=== PATIENT | male | born 1950 | race Caucasian/White ===

== ENCOUNTER 2018-01-17 15:56 | Inpatient (IN) | payer MEDICARE ==
[~2018-01-17] VITALS: Ht 142.2 cm; Wt 69.1 kg
[~2018-01-17 15:56] MED LIST: AMLO5TAB2 PO; ASPI-515 PO; METO50TA82 PO; OMEP40CA6 PO; OXYC15TA PO
[2018-01-17] MEDS ORDERED: SODIUM CHLORIDE 0.9% 1,000ML IVBOLUS ONE (16:30)
[2018-01-17] MEDS ORDERED: SODIUM CHLORIDE FLUSH 10ML SYR IVF ONE (16:30)
[2018-01-17 17:03] LABS: BASOPHILS % (AUTO) 0 % (0-1); EOSINOPHILS % (AUTO) 0 % (1-7); LYMPHOCYTES % (AUTO) 4 % (22-44); MD NO; MEAN CORPUSCULAR HGB CONC 33.1 g/dL (33.2-36.2); MEAN PLATELET VOLUME 9.5 fL (7.4-10.4); MONOCYTES # (AUTO) 0.43 x10^3/uL (0.2-0.8); MONOCYTES % (AUTO) 3 % (2-9); NEUTROPHILS % (AUTO) 93 % (42-75); PLATELET COUNT 198 x10^3/uL (130-400); RED BLOOD COUNT 3.25 x10^6/uL (4.38-5.82); RED CELL DISTRIBUTION WIDTH 14.2 % (9.4-14.8)
[2018-01-17 17:10] LABS: INTERNATIONAL NORMALIZED RATIO 1.28 (0.93-1.1); PROTHROMBIN TIME 13.2 Seconds (9.6-11.5)
[2018-01-17 17:12] LABS: ACETONE, SERUM Small (20mg/dL) mg/dL (Negative)
[2018-01-17 17:13] LABS: O2 FLOW ROOM AIR L/min
[2018-01-17 17:14] LABS: ALANINE AMINOTRANSFERASE 29 U/L (12-78); ALBUMIN 1.4 g/dL (3.4-5.0); ANION GAP 12 mmol/L (5-15); CALCIUM 7.1 mg/dL (8.5-10.1); CHLORIDE 113 mmol/L (98-107); CREATININE 1.89 mg/dL (0.7-1.3)
[2018-01-17 17:41] LABS: ALKALINE PHOSPHATASE 248 U/L (45-117); BILIRUBIN,TOTAL 0.5 mg/dL (0.2-1.0); TOTAL PROTEIN 4.9 g/dL (6.4-8.2)
[2018-01-17] MEDS ORDERED: GABA100C PO (17:43)
[2018-01-17] MEDS ORDERED: CALC-680 PO (17:43)
[2018-01-17] MEDS ORDERED: LIPA1CAP4 PO (17:43)
[2018-01-17] MEDS ORDERED: CALC200T3 PO (17:43)
[2018-01-17] MEDS ORDERED: BUDE10.2 INH (17:43)
[2018-01-17] MEDS ORDERED: LACT1TAB13 PO (17:43)
[2018-01-17] MEDS ORDERED: OMEP-110 PO (17:43)
[2018-01-17] MEDS ORDERED: MORP15TA3 PO (17:43)
[2018-01-17] MEDS ORDERED: HEPA50006 SQ (17:43)
[2018-01-17] MEDS ORDERED: ERGO500017 PO (17:43)
[2018-01-17] MEDS ORDERED: DULO30CA2 PO (17:43)
[2018-01-17] MEDS ORDERED: SODIUM CHLORIDE 0.9%, 500ML IVBOLUS ONE (18:00)
[2018-01-17] MEDS ORDERED: VANCOMYCIN PMX 1GM/200ML 200 ML IV ONE (18:00)
[2018-01-17] MEDS ORDERED: PIPERACILLIN/TAZO/PMX 3.375GM 50 ML IVPB ONE (18:00)
[2018-01-17] MEDS ORDERED: VANCOMYCIN PER PHARMACY MC ONE (18:00)
[2018-01-17] MEDS ORDERED: ALBUMIN HUMAN 25% 100 ML IV ONE (19:30)
[2018-01-17] MEDS ORDERED: SODIUM CHLORIDE 0.9% 1,000 ML IV SCH (19:47)
[2018-01-17] MEDS ORDERED: VANCOMYCIN PER PHARMACY MC PRN (20:00)
[2018-01-17] MEDS ORDERED: ONDANSETRON ODT 4 MG PO PRN (20:00)
[2018-01-17] MEDS ORDERED: POLYETHYLENE GLYCOL 17 GM PACKET PO PRN (20:00)
[2018-01-17] MEDS ORDERED: DEXTROSE 50%, 50ML SYRINGE IVPush PRN (20:00)
[2018-01-17] MEDS ORDERED: DEXTROSE 4 GM TAB.CHEW PO PRN (20:00)
[2018-01-17] MEDS ORDERED: ONDANSETRON 2MG/ML, 2ML IVPush PRN ×2 (20:00→20:52)
[2018-01-17] MEDS ORDERED: TEMAZEPAM 15 MG CAPSULE PO PRN (20:00)
[2018-01-17] MEDS ORDERED: HYDROcodone/APAP 5/325 TABLET PO PRN (20:00)
[2018-01-17] MEDS ORDERED: GLUCAGON 1 MG IM PRN (20:00)
[2018-01-17] MEDS ORDERED: DOCUSATE 100 MG CAPSULE PO PRN (20:00)
[2018-01-17] MEDS ORDERED: morphine SULFATE 10 MG/ML, 1ML IVPush PRN (20:00)
[2018-01-17] MEDS ORDERED: PHARMACOKINETIC CONSULTATION MC ONE (21:00)
[2018-01-17] MEDS ORDERED: PHARMACOKINETIC MONITORING MC PRN (21:00)
[2018-01-17] MEDS: HEPARIN 5,000 UNITS/ML, 1ML SQ SCH (21:25)
[2018-01-17] MEDS: PIPERACILLIN/TAZO 2.25 GM in SODIUM CHLORIDE 0.9% 50 ML IV SCH (21:25)
[2018-01-17] MEDS: GABAPENTIN 100 MG CAPSULE PO SCH (21:49)
[2018-01-17] MEDS: SODIUM CHLORIDE FLUSH 10ML SYR IVF SCH (21:49)
[2018-01-17 23:09] LABS: CLOSTRIDIUM DIFFICILE ANTIGEN NEGATIVE; CLOSTRIDIUM DIFFICILE TOXIN NEGATIVE (Negative)
[2018-01-17 23:36] VITALS: BP 112/74
[2018-01-18] MEDS ORDERED: ALBUTEROL/IPRATROPIUM 2.5MG/0.5MG, 3 ML NPPB PRN
[2018-01-18] MEDS: SODIUM BICARBONATE 8.4% 150 MEQ in DEXTROSE 5% 1,000 ML IV SCH ×2 (00:39→11:42)
[2018-01-18 02:46] LABS: MICROSCOPIC INDICATED
[2018-01-18 02:59] LABS: CULTURE INDICATED? NO
[2018-01-18 04:00] VITALS: BP 78/58
[2018-01-18 04:36] LABS: BASOPHILS # (AUTO) 0.01 x10^3/uL (0-0.1); BASOPHILS % (AUTO) 0 % (0-1); EOSINOPHILS % (AUTO) 0 % (1-7); LYMPHOCYTES # (AUTO) 0.51 x10^3/uL (1-3.4); LYMPHOCYTES % (AUTO) 6 % (22-44); MD NO; MEAN CORPUSCULAR HGB CONC 32.6 g/dL (33.2-36.2); MEAN PLATELET VOLUME 9.6 fL (7.4-10.4); MONOCYTES # (AUTO) 0.26 x10^3/uL (0.2-0.8); MONOCYTES % (AUTO) 3 % (2-9); NEUTROPHILS # (AUTO) 8.49 x10^3/uL (1.8-6.8); NEUTROPHILS % (AUTO) 92 % (42-75); PLATELET COUNT 145 x10^3/uL (130-400); RED BLOOD COUNT 2.71 x10^6/uL (4.38-5.82); RED CELL DISTRIBUTION WIDTH 14.6 % (9.4-14.8)
[2018-01-18 04:47] LABS: ALBUMIN 1.6 g/dL (3.4-5.0); ANION GAP 10 mmol/L (5-15); CALCIUM 6.7 mg/dL (8.5-10.1); CHLORIDE 114 mmol/L (98-107)
[2018-01-18 04:52] LABS: ALANINE AMINOTRANSFERASE 21 U/L (12-78); ALKALINE PHOSPHATASE 179 U/L (45-117); BILIRUBIN,TOTAL 0.7 mg/dL (0.2-1.0); TOTAL PROTEIN 4.2 g/dL (6.4-8.2)
[2018-01-18] MEDS: HEPARIN 5,000 UNITS/ML, 1ML SQ SCH ×3 (05:42→21:18)
[2018-01-18] MEDS: PIPERACILLIN/TAZO 2.25 GM in SODIUM CHLORIDE 0.9% 50 ML IV SCH ×3 (05:42→21:19)
[2018-01-18] MEDS: NOREPINEPHRINE 4 MG in SODIUM CHLORIDE 0.9% 246 ML IV PRN ×2 (06:50→13:30)
[2018-01-18] MEDS: ALBUTEROL/IPRATROPIUM 2.5MG/0.5MG, 3 ML NPPB SCH ×4 (07:00→18:54)
[2018-01-18] MEDS: SODIUM CHLORIDE FLUSH 10ML SYR IVF SCH ×2 (09:00→21:18)
[2018-01-18] MEDS: GABAPENTIN 100 MG CAPSULE PO SCH ×3 (09:46→20:51)
[2018-01-18] MEDS: OMEPRAZOLE 20 MG CAPSULE.DR PO SCH (09:46)
[2018-01-18] MEDS ORDERED: VANCOMYCIN PMX 1GM/200ML 200 ML IV SCH (16:00)
[2018-01-18] MEDS ORDERED: FUROSEMIDE 20 MG/2 ML ONE (16:59)
[2018-01-18] MEDS ORDERED: FUROSEMIDE 20 MG/2 ML IV ONE ×2 (17:00→19:30)
[2018-01-18] MEDS ORDERED: MORPHINE SULFATE 4 MG/ML, 1ML ONE (17:37)
[2018-01-18] MEDS ORDERED: NOREPINEPHRINE 8 MG in SODIUM CHLORIDE 0.9% 242 ML IV PRN (17:46)
[2018-01-18] MEDS ORDERED: ALBUMIN HUMAN 25% 100 ML IV ONE (18:00)
[2018-01-18] MEDS ORDERED: VANCOMYCIN PMX 1GM/200ML 200 ML IV ONE (18:30)
[2018-01-18] MEDS ORDERED: morphine SULFATE 10 MG/ML, 1ML IVPush PRN (20:00)
[2018-01-18] MEDS ORDERED: SODIUM BICARBONATE 8.4% 150 MEQ in DEXTROSE 5% 1,000 ML IV SCH (23:30)
[2018-01-19] MEDS: NOREPINEPHRINE 16 MG in SODIUM CHLORIDE 0.9% 234 ML IV PRN ×2 (00:17→14:26)
[2018-01-19 02:29] LABS: MICROSCOPIC INDICATED
[2018-01-19 02:30] LABS: CULTURE INDICATED? YES
[2018-01-19 04:00] VITALS: BP 88/68
[2018-01-19 04:23] LABS: ALANINE AMINOTRANSFERASE 23 U/L (12-78); ALBUMIN 1.8 g/dL (3.4-5.0); ANION GAP 7 mmol/L (5-15); CALCIUM 6.6 mg/dL (8.5-10.1); CHLORIDE 112 mmol/L (98-107); CREATININE 2.08 mg/dL (0.7-1.3)
[2018-01-19 04:26] LABS: ALKALINE PHOSPHATASE 146 U/L (45-117); BILIRUBIN,TOTAL 0.5 mg/dL (0.2-1.0); TOTAL PROTEIN 4.3 g/dL (6.4-8.2)
[2018-01-19 04:29] LABS: MEAN CORPUSCULAR HEMOGLOBIN 31.4 pg (27.5-34.5); MEAN CORPUSCULAR HGB CONC 32.2 g/dL (33.2-36.2); MEAN CORPUSCULAR VOLUME 97.7 fL (81-97); MEAN PLATELET VOLUME 10.1 fL (7.4-10.4); PLATELET COUNT 135 x10^3/uL (130-400); RED BLOOD COUNT 3.06 x10^6/uL (4.38-5.82)
[2018-01-19] MEDS: HEPARIN 5,000 UNITS/ML, 1ML SQ SCH ×2 (05:16→14:22)
[2018-01-19] MEDS: PIPERACILLIN/TAZO 2.25 GM in SODIUM CHLORIDE 0.9% 50 ML IV SCH (05:16)
[2018-01-19 05:33] LABS: MD YES
[2018-01-19 05:35] LABS: BAND#(MANUAL) 1.62 x10^3/uL; BANDS%(MANUAL) 16 % (0-7); MONOS% (MANUAL) 1 % (2-9); SEG#(MANUAL) 8.38 x10^3/uL (1.8-6.8); SEGS% (MANUAL) 83 % (42-75)
[2018-01-19 05:36] LABS: ANISOCYTOSIS 1+
[2018-01-19 05:37] LABS: <PLATELET ESTIMATE> ADEQUATE; <PLT MORPHOLOGY> NORMAL PLT MORPH
[2018-01-19] MEDS: ALBUTEROL/IPRATROPIUM 2.5MG/0.5MG, 3 ML NPPB SCH ×3 (06:54→14:07)
[2018-01-19] MEDS: OMEPRAZOLE 20 MG CAPSULE.DR PO SCH (09:00)
[2018-01-19] MEDS: GABAPENTIN 100 MG CAPSULE PO SCH ×2 (09:00→14:23)
[2018-01-19] MEDS: SODIUM CHLORIDE FLUSH 10ML SYR IVF SCH (09:54)
[2018-01-19] MEDS ORDERED: PIPERACILLIN/TAZO/PMX 2.25GM 50 ML IVPB SCH (13:30)
== END 2018-01-19 20:37 | disposition expired | DRG 871 ==
LOC: ED 17:27 → EDIP 18:14 → CCU 20:25
PROVIDERS: ADMIT Internal Medicine; ATTEND Internal Medicine
PROC: 02H633Z Insertion of Infusion Device into Right Atrium, Percutaneous Approach (ICD-10-PCS; principal; 2018-01-17)
PROC: B244ZZZ Ultrasonography of Right Heart (ICD-10-PCS; 2018-01-17)
PROC: 0T9B70Z Drainage of Bladder with Drainage Device, Via Natural or Artificial Opening (ICD-10-PCS; 2018-01-19)
DX: A41.9 Sepsis, unspecified organism (principal); J18.9 Pneumonia, unspecified organism; J96.00 Acute respiratory failure, unspecified whether with hypoxia or hypercapnia; E43 Unspecified severe protein-calorie malnutrition; R65.21 Severe sepsis with septic shock; G93.41 Metabolic encephalopathy; J91.8 Pleural effusion in other conditions classified elsewhere; D68.9 Coagulation defect, unspecified; R18.8 Other ascites; I47.1 Supraventricular tachycardia; K86.1 Other chronic pancreatitis; K76.0 Fatty (change of) liver, not elsewhere classified; N18.3 Chronic kidney disease, stage 3 (moderate); E87.5 Hyperkalemia; F32.9 Major depressive disorder, single episode, unspecified; G62.9 Polyneuropathy, unspecified; G89.4 Chronic pain syndrome; I12.9 Hypertensive chronic kidney disease with stage 1 through stage 4 chronic kidney disease, or unspecified chronic kidney disease; I73.9 Peripheral vascular disease, unspecified; K21.9 Gastro-esophageal reflux disease without esophagitis; R29.6 Repeated falls; Z66 Do not resuscitate; E86.0 Dehydration; R62.7 Adult failure to thrive; L97.529 Non-pressure chronic ulcer of other part of left foot with unspecified severity; Z68.34 Body mass index [BMI] 34.0-34.9, adult
CPT/HCPCS: 36415; 36600; 70450; 71045; 80053; 81001; 82010; 82140; 82533; 82607; 82803; 83605; 83735; 83880; 84100; 84145; 84443; 85025; 85610; 86850; 86900; 87040; 87081; 87086; 87324; 93005; 93306; 94640; 96361; 96374; J1644; J2543; J3370; J7070; J7620; P9047; J1940; J2270; J7030; J7040; J7050